=== PATIENT | male | born 1995 | race Caucasian/White ===

== ENCOUNTER 2018-05-10 21:51 | Emergency (ER) | payer OTHER, SELFPAY ==
[2018-05-10 21:52] VITALS: BP 118/76; PULSE 111; RESP 20; TEMP 36.8; O2SAT 96; BMI 30.2
--- NOTE | 2018-05-10 22:31 | ED.DCSUM_ITS ---
- ER Visit Summary Date of Service: 05/10/18 Chief Complaint: Suicidal thoughts, paranoia History of Present Illness: The patient is a 22 M with history of personality disorder and schizophrenia presents to the emergency department with increasing suicidal thoughts and personality disorder. The patient states that he was diagnosed as a schizophrenic as he was hospitalized at [facility] about a year ago. He was on Risperdal, but missed a few of his counseling appointments, and has been off of his medications. States his been having a difficult time dealing with his psychiatric disease. He has had dissociative voices, delusions, and hallucinations. He is also thoughts of harming himself. He states I will just plan traffic. Patient does have a history of drug abuse, but has been clean for over a year. Physical Examination: Vital signs reviewed General: Well-nourished, well-developed Head: Normocephalic, atraumatic Eyes: Pupils equal and reactive, extraocular muscles intact Neck, supple, no lymphadenopathy Heart: Regular rate and rhythm Respiratory: No distress, clear bilaterally Abdomen: Soft, nontender, nondistended, no peritoneal signs Back: Nontender Extremities: Nontender, no edema, no cords Skin: Normal color no rash Neuro: Alert and oriented, no focal or lateralizing deficits Test Results: [] Emergency Department Course and Treatment: The patient had psychiatric screening labs completed. These are unremarkable. His tox and alcohol were negative. He did request oral medications on arrival and he was given oral Haldol and Ativan. He is been resting comfortably. The patient has been medically cleared for transport to a psychiatric facility. We are current [facility] awaiting bed placement. Treatment Plan: [] Disposition: Transfer Impression: 1. Decompensated schizophrenia 2. Suicidal ideation This note was generated with [employer] software. It may contain incorrect words, spelling, and punctuation that were not noted in review of the chart prior to signing ED Disposition - Plan for ED Patient: Chief Complaint: Suicidal Referrals: NOT,DEFINED [NON-STAFF] -
[2018-05-10 22:54] VITALS: BP 120/74; PULSE 105; RESP 14; O2SAT 98
[2018-05-10 23:01] VITALS: BP 114/75; PULSE 92; RESP 14; O2SAT 98
[2018-05-10] MEDS: LORazepam 1 MG Tablet 2 MG PO (23:03)
[2018-05-10] MEDS: Haloperidol 5 MG Tablet PO (23:04)
[2018-05-10 23:21] LABS: Absolute Lymphocyte Count 2.84 X10^3/ul (0.83-4.51); Absolute Neutrophil Count 5.6 X10^3/uL (2.0-7.7); Basophil# 0.02 X10^3/uL; Basophil% 0.2 % (0-1); Eosinophil# 0.16 X10^3/uL; Eosinophils% 1.7 % (0-5); Hematocrit 46.7 % (40-54); Hemoglobin 16.5 g/dl (13.0-16.5); Lymphocyte # 2.84 X10^3/ul (4.0); Lymphocyte % 29.8 % (19-41); Mean Corp Hgb Conc 35.3 g/gl (32-36); Mean Corpuscular Volume 90.5 fL (80-94); Mean Platelet Vol. 9.3 fl (6.2-12.0); Monocyte# 0.85 X10^3/uL; Monocyte% 8.9 % (0-10); Neutrophil # 5.63 X10^3/uL (2.7-7.7); Neutrophil % 59.2 % (47-70); Platelet Count 323 K/mm3 (150-450); RBC Distribution Width CV 12.6 % (11.6-14.6); RBC Distribution Width SD 41.1 fl (35.1-43.9); Red Blood Count 5.16 M/mm3 (4.6-6.2); White Blood Count 9.5 K/mm3 (4.4-11.0)
[2018-05-10 23:22] LABS: POSITIVE COUNT NO; POSITIVE DIFFERENTIAL NO; POSITIVE MORPHOLOGY NO
[2018-05-10 23:26] LABS: Anion Gap 8 (5-15); BUN 12 mg/dL (7-18); BUN/Creat Ratio 12.2 RATIO (10-20); Calcium,Total 9.2 mg/dL (8.5-10.1); Chloride 107 mmol/L (98-107); Creatinine, Serum 0.98 mg/dL (0.70-1.30); EST Glomerular Filtration Rate 103 mL/min (>60); Est Glom Filt Rate - Afr Amer 125 mL/min (>60); Estimated Creatinine Clearance 128.06 ml/min; Glucose 86 mg/dL (74-106); Potassium 3.7 mmol/L (3.5-5.1); Sodium Level 142 mmol/L (136-145)
[2018-05-10 23:47] LABS: Amphetamine Urine VISTA NEGATIVE (<1000 ng/mL); Barbiturate Urine VISTA NEGATIVE (< 200 ng/mL); Benzodiazepine Urine VISTA NEGATIVE (< 200 ng/mL); Cocaine Urine VISTA NEGATIVE (< 300 ng/mL); Ecstacy Urine VISTA NEGATIVE (< 500 ng/mL); Methadone Urine VISTA NEGATIVE (< 300 ng/mL); PCP Urine VISTA NEGATIVE (< 25 ng/mL); THC Urine VISTA NEGATIVE (< 50 ng/mL); Vista UDS pH Range 5
[2018-05-10 23:54] LABS: Alcohol, Blood (Medical)-Serum < 3.0 mg/dL
[2018-05-11] VITALS (7 sets, daily range): BP systolic 111; BP diastolic 64; PULSE 64; RESP 14–16; O2SAT 100
--- NOTE | 2018-05-11 | ED.RN ---
CALLED [facility] TO SEE THIS PT, EVARISTO IS [employer]
--- NOTE | 2018-05-11 06:51 | NURSING ---
CALLED [facility] FOR TRANSFER. THEY WILL SEND A TRUCK AT SHIFT CHANGE 7 AM
== END 2018-05-11 08:30 ==
PROVIDERS: Emergency Provider Emergency Medicine
DX: F20.9 Schizophrenia, unspecified (principal); R45.851 Suicidal ideations; Z91.14 Patient's other noncompliance with medication regimen; Z91.19 Patient's noncompliance with other medical treatment and regimen; F60.9 Personality disorder, unspecified; Z87.898 Personal history of other specified conditions; Z72.0 Tobacco use
CPT/HCPCS: 80048; 80307; 80320; 85025; 99283; G0480

== ENCOUNTER → 2018-11-01 | Outpatient (CLI) | payer OTHER, SELFPAY ==
[2018-11-01 06:37] VITALS: BMI 30.2
[2018-11-01 15:10] LABS: Chlamydia Trachomatis by PCR Negative (Negative); Neisserai gonorrhoeae by PCR Negative (Negative); Probe Check PASS; Sample Adequacy Control PASS; Specimen Processing Control PASS
== END | disposition home or self-care (01) ==
LOC: LABSPEC 13:06
PROVIDERS: Referring Provider Physician Assistant Surgical; Visit Provider Physician Assistant Surgical
DX: Z20.2 Contact with and (suspected) exposure to infections with a predominantly sexual mode of transmission (principal)
CPT/HCPCS: 87491; 87591

== ENCOUNTER 2019-09-07 19:55 | Emergency (ER) | payer OTHER, SELFPAY ==
[2019-04-16 13:50] VITALS: BMI 30.2
[2019-09-07 19:56] VITALS: BP 130/108; PULSE 91; RESP 17; TEMP 36.5; O2SAT 97; BMI 35.4
[2019-09-07 20:25] VITALS: RESP 16
--- NOTE | 2019-09-07 21:03 | RAD_ITS ---
STUDY: X-RAY - ABDOMEN/PELVIS REASON FOR EXAM: Male, 23 years old. ABDOMEN PAIN X 3 DAYS, 3 DAYS SINCE LAST BM TECHNIQUE: 3 frontal views of the abdomen were obtained COMPARISON: None. FINDINGS: Normal visualized lung bases. There is an unremarkable bowel gas pattern. There is no demonstrated free abdominal air. Moderate stool burden. Normal soft tissue structures. Normal visualized osseous structures. RAD/Abdomen Single View IMPRESSION: Moderate stool burden. No free air or obstruction identified. Electronically Signed: Edy Krishnamurthy, at 23:23 EST Tel , Service support ,
[2019-09-07] MEDS: 0.9% Normal Saline 1,000 ML 1000 ML IV (21:32)
[2019-09-07] MEDS: Ondansetron 4 MG/2 ML Vial IV (21:32)
[2019-09-07] MEDS: Ketorolac 30 MG/ML Syringe IV (21:33)
[2019-09-07 21:46] LABS: Absolute Lymphocyte Count 3.11 X10^3/uL (0.83-4.51); Absolute Neutrophil Count 4.2 X10^3/uL (2.0-7.7); Basophil# 0.02 X10^3/uL; Basophil% 0.2 % (0-1); Eosinophil# 0.15 X10^3/uL; Eosinophils% 1.8 % (0-5); Hematocrit 45.3 % (40-54); Hemoglobin 15.7 g/dL (13.0-16.5); Lymphocyte # 3.11 X10^3/ul (4.0); Lymphocyte % 37.6 % (19-41); Mean Corp Hgb Conc 34.7 g/dL (32-36); Mean Corpuscular Volume 89.3 fL (80-94); Mean Platelet Vol. 8.5 fl (6.2-12.0); Monocyte# 0.77 X10^3/uL; Monocyte% 9.3 % (0-10); NRBC Flagged by Analyzer 0 % (0-5); Neutrophil % 50.7 % (47-70); Platelet Count 268 K/mm3 (150-450); RBC Distribution Width CV 11.6 % (11.6-14.6); RBC Distribution Width SD 37.3 fl (35.1-43.9); Red Blood Count 5.07 M/mm3 (4.6-6.2); White Blood Count 8.3 K/mm3 (4.4-11.0)
[2019-09-07 22:06] LABS: AST(SGOT) 30 U/L (15-37); Alanine Aminotransfer ALT/SGPT 62 U/L (16-61); Albumin, Serum 3.5 g/dL (3.2-5.0); Alkaline Phosphatase 92 U/L (45-117); Anion Gap 2 (5-15); BUN 16 mg/dL (7-18); BUN/Creat Ratio 16.2 RATIO (10-20); Bilirubin, Direct 0.08 mg/dL (0.00-0.30); Calcium,Total 8.6 mg/dL (8.5-10.1); Chloride 109 mmol/L (98-107); Creatinine, Serum 0.99 mg/dL (0.70-1.30); EST Glomerular Filtration Rate 101 mL/min (>60); Est Glom Filt Rate - Afr Amer 122 mL/min (>60); Estimated Creatinine Clearance 125.71 ml/min; Globulin 3.8 g/dL (2.2-4.2); Glucose 82 mg/dL (74-106); Lipase 90 U/L (73-393); Potassium 4.2 mmol/L (3.5-5.1); Protein, Total 7.3 g/dL (6.4-8.2); Sodium Level 140 mmol/L (136-145)
--- NOTE | 2019-09-07 22:42 | ED.DCSUM_ITS ---
History of Present Illness Chief Complaint: Constipation Informant: Patient Onset: Days - 3 days Current Severity: Mild Maximum Severity: Mild Narrative: Patient presents with a 3-day history of constipation. He states he feels as if he needs to go the bathroom but is unable. He has had nausea and vomiting for the past 2 days. He describes some abdominal cramping. He states that he had a fever 6 days ago but is unsure if it is related to his current symptoms. He states approximately a year ago he had some problems with constipation that seemed to self resolve. He has not had any prior abdominal surgeries. - Past Medical History (1) Depression Status: Chronic Past Medical History - Allergies and Home Meds Allergies/Adverse Reactions: Allergies amoxicillin Adverse Reaction (Verified 09/07/19 19:55) Fever and skin rash Primary Care Physician: Markel Jimenez MD [STAFF PHYSICIAN] - As Needed Prior records reviewed: Yes Smoking Status: Current every day smoker Review of Systems General: Denies: Chills, Fever Eyes: Denies: Visual changes - bilaterally ENT: Denies: Bilateral ear pain Cardiovascular: Denies: Chest pain Respiratory: Denies: Dyspnea, Cough Gastrointestinal: Reports: Abdominal pain, Nausea, Vomiting, Constipation Genitourinary: Denies: Dysuria Musculoskeletal: Denies: Swelling, Extremity Pain Skin: Denies: Rash Neurological: Denies: Headache Allergy: Denies: Uticaria Physical Exam Vital Signs/Narrative: Vital Signs Temp Pulse Resp BP Pulse Ox 09/07/19 20:25 16 09/07/19 19:56 97.7 F L 91 17 130/108 H 97 Inital Vital Signs reviewed: Yes General: Well nourished, Well developed Head: Normocephalic ENT: Moist mucous membranes Neck: Supple Cardiovascular: Regular rate, Regular rhythm Respiratory: No distress, CTA bilaterally Abdomen: Soft, Nontender, Hypoactive bowel sounds Extremities: Nontender Skin: Normal color, No rash Neurological: Alert, Oriented x3 Psychological: Normal affect Diagnostic/Tx/Re-eval Impressions KUB X-Ray 09/07/19 21:03 IMPRESSION: Moderate stool burden. No free air or obstruction identified. Electronically Signed: Edy Krishnamurthy, at 23:23 EST Tel , Service support , 09/07/19 21:03 Abdomen Single View [RAD] Stat Laboratory Results 09/07/19 09/07/19 21:32 21:32 WBC 8.3 RBC 5.07 Hgb 15.7 Hct 45.3 MCV 89.3 MCH 31.0 MCHC 34.7 RDW Std Deviation 37.3 RDW Coeff of Vijaya 11.6 Plt Count 268 MPV 8.5 Immature Gran % (Auto) 0.400 Neut % (Auto) 50.7 Lymph % (Auto) 37.6 Hill % (Auto) 9.3 Eos % (Auto) 1.8 Baso % (Auto) 0.2 Absolute Neuts (auto) 4.2 Absolute Lymphs (auto) 3.11 Nucleated RBC % 0 Sodium 140 Potassium 4.2 Chloride 109 H Carbon Dioxide 29.0 Anion Gap 2 L BUN 16 Creatinine 0.99 Estim Creat Clear Calc 125.71 Est GFR (MDRD) Af Amer 122 Est GFR (MDRD) Non-Af 101 BUN/Creatinine Ratio 16.2 Glucose 82 Calcium 8.6 Total Bilirubin 0.30 Direct Bilirubin 0.08 AST 30 ALT 62 H Alkaline Phosphatase 92 Total Protein 7.3 Albumin 3.5 Globulin 3.8 Lipase 90 - Medical Decision Making Patient is given Zofran, Toradol, IV fluids. On repeat evaluation nausea s ignificantly improved and he is requesting to eat. Patient does have significant stool noted, worse in the ascending and transverse colon. He will be given a bottle of mag citrate which she will drink tomorrow to help treat his constipation. ED Disposition - Plan for ED Patient: Disposition: Home or Assisted Living Diagnosis: Constipation Instructions: CONSTIPATION (Adult) Referrals: Markel Jimenez MD [STAFF PHYSICIAN] - As Needed Additional Instructions: You were given a bottle of Mag Citrate to treat your constipation. Tomorrow morning, drink half the bottle. If you have not had a bowel movement in 3-4 hours, drink the rest of the bottle.
[2019-09-07] MEDS: Magnesium Citrate 300 ML PO (22:57)
[2019-09-07 22:58] VITALS: RESP 16
== END 2019-09-07 22:58 | disposition home or self-care (01) ==
PROVIDERS: Emergency Provider Emergency Medicine
DX: K59.00 Constipation, unspecified (principal); R11.2 Nausea with vomiting, unspecified; F32.9 Major depressive disorder, single episode, unspecified; Z79.899 Other long term (current) drug therapy; F17.200 Nicotine dependence, unspecified, uncomplicated
CPT/HCPCS: 74018; 80048; 80076; 83690; 85025; 96360; 96361; 96374; 96375; 99283; J7030; J2405

== ENCOUNTER 2021-10-04 15:11 | Emergency (ER) | payer OTHER, SELFPAY ==
[2021-10-04 15:12] VITALS: BP 120/66; PULSE 105; RESP 16; TEMP 36.4; O2SAT 96; BMI 34.0
--- NOTE | 2021-10-04 15:26 | EDS_ITS ---
HPI History of Present Illness Chief Complaint: Foreign Body Informant: patient Onset/Context/Timing Onset: Today and Hours Context: Sudden Onset Timing: Continuous Current Severity: Mild Maximum Severity: Mild Narrative Narrative: 25-year-old male no sniffing past medical history. Currently on no medications. States he is eating spaghetti for lunch coughed and felt it go up the back nasopharynx area. Denies any trouble swallowing or breathing. Denies any pain. Prior similar symptoms: No Recent Illness/Hospitalization: No PFSH PFSH Medical History (Updated 10/04/21 @ 15:[address] Edy Vann MD) Depression Medical History no medical history no medical history Allergy/AdvReac Type Severity Reaction Status Date / Time amoxicillin AdvReac Fever and Verified 10/04/21 15:12 skin rash Family History Other Heart disease Surgical History no surgical history no surgical history Social History Smoking Status: Heavy Smoker (>10/day) alcohol intake: never ROS ROS ED ROS Narrative Denies recent illness. Constitutional Constitutional ED: Denies fever(s) Eyes Eyes: Denies change in vision ENT ENT ED: Denies ear pain Cardiovascular Cardiovascular: Denies chest pain Respiratory/Chest Respiratory/Chest: Denies dyspnea Gastrointestinal Gastrointestinal: Denies abdominal pain Genitourinary Genitourinary ED: Denies dysuria Musculoskeletal Musculoskeletal: Denies myalgias Integumentary Denies rash Neurologic Neurologic: Denies headache(s) Psychiatric Psychiatric: Denies depression Endocrine Endocrinology: Denies polyuria Allergic/Immunologic Allergic/Immunologic ED: Denies urticaria EXAM Physical Exam Narrative Exam Narrative: 22-year-old male no acute distress. H EENT exam normal. Posterior pharynx normal. No foreign body. No trouble breathing or swallowing. No choking or gagging. Nares are unremarkable bilaterally. Otherwise exam normal. Lungs are clear to auscultation bilaterally. Heart regular rate and rhythm. Const Vital Signs: 10/04/21 15:12 Temperature 97.5 F L Temperature Source Oral Pulse Rate 105 H Respiratory Rate 16 Blood Pressure 120/66 Blood Pressure Mean 84 Pulse Ox 96 Oxygen Delivery Method Room Air Positive well nourished, well developed and obese; Negative for cachectic, contractures or unkempt General Appearance ED: well developed and NAD; Negative for unkempt, cachectic, contractures, cyanotic, diaphoretic or pallor Nutritional Appearance: obese; Negative for cachectic HEENT Reports moist mucous membranes Negative for trauma or tenderness Eyes PERRL and EOMs intact bilaterally Neck no lymphadenopathy, supple and no JVD General: Negative for tenderness Chest Wall inspection of chest normal and palpation of chest normal Resp normal respiratory effort and clear to auscultation bilaterally Auscultation: Negative for rales, rhonchi or wheezes Cardio regular rate, regular rhythm, S1 normal heart sound, S2 normal heart sound and no murmurs GI normal to inspection, nondistended, normoactive bowel sounds, non-tender, non- distended and no masses Inspection: Negative for abdominal distention Auscultation: normoactive bowel sounds Palpation: soft; Negative for tender, guarding or rebound tenderness present Back/Spine no CVA tenderness Cervical Spine: Negative for cervical spine tenderness Thoracic Spine / Upper Back: Negative for thoracic spinal tenderness Extremity normal to inspection General Extremety ED: Negative for edema or tenderness General Extremity: Negative for edema Neuro oriented x3 Sensorium / Orientation: alert; Negative for orientation impaired, lethargic or stuporous Motor Exam: strength 5/5 throughout Psych mental status grossly normal Appearance: Negative for unkempt Attitude: No agitated Mood & Affect: Negative for depressed, anxious or tearful Skin no rashes or lesions noted and no wounds General Skin Exam: Negative for jaundice or pallor MDM MDM MDM Narrative Medical decision making narrative: 14-year-old male was eating spaghetti coughed and thinks it went in his posterior nasopharynx. Exam is normal. I reassured the patient there is nothing to do at this time. He can follow-up with ENT if his symptoms do not resolve in the next several days. Discharge Plan Triage Chief Complaint: Foreign Body ED Provider: Edy Vann Dx/Rx/DC Orders Clinical Impression: Acute foreign body of nose Primary Care Provider: Care Physician,No Primary Referrals: Jarocho Victoria MD [STAFF PHYSICIAN] - 1 Week if not improving Care Physician,No Primary [Primary Care Provider] - Activity Restrictions/Additional Instructions: This typically resolves completely on its own. The food most likely will dislodge and come down in your esophagus without any difficulty. Follow-up with ear nose and throat in a week if the symptoms do not resolve or you are having problems. That is extremely unlikely. Disposition Disposition: Home, Self Care
== END 2021-10-04 15:34 | disposition home or self-care (01) ==
PROVIDERS: Emergency Provider Emergency Medicine; Visit Provider Emergency Medicine
DX: T17.1XXA Foreign body in nostril, initial encounter (principal); F17.200 Nicotine dependence, unspecified, uncomplicated; E66.9 Obesity, unspecified; Z68.34 Body mass index [BMI] 34.0-34.9, adult
CPT/HCPCS: 99282

== ENCOUNTER 2021-11-23 16:09 | Emergency (ER) | payer OTHER, SELFPAY ==
[2021-11-23 16:10] VITALS: BP 131/83; PULSE 131; RESP 18; TEMP 37.9; O2SAT 98; BMI 32.1
[2021-11-23 16:16] VITALS: TEMP 38.4
--- NOTE | 2021-11-23 16:18 | EKG12_ITS ---
Test Reason : CHEST HEAVINESS Blood Pressure : / mmHG Vent. Rate : 116 BPM Atrial Rate : 116 BPM P-R Int : 128 ms QRS Dur : 084 ms QT Int : 296 ms P-R-T Axes : 014 042 019 degrees QTc Int : 411 ms Sinus tachycardia Otherwise normal ECG Confirmed by HONG WILLIAMSON, MARGARITO ([id number]), editor book SIRENA ELLIOTT ([id number]) on 11/25/2021 11:44:59 AM Referred By: Confirmed By:MARGARITO PITTS MD
--- NOTE | 2021-11-23 16:20 | EDS_ITS ---
HPI History of Present Illness Chief Complaint: Chest Pain Informant: patient Narrative Narrative: 26-year-old male presenting to the emergency department out of concern for heatstroke. 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 He woke up this morning feeling fine went into work. He states that he has been drinking plenty of fluids and has urinated multiple times. He notes a chest pressure some shortness of breath and feels lighthea ded. Feels dehydrated. He states that he stopped sweating for the past couple hours. He notes an occasional cough and some nausea. He denies any runny nose sore throat diarrhea or vomiting. No DVT or PE risk factors. [facility] Medical History (Updated 11/23/21 @ 19:[address] Wilbert Santos DO) Depression Allergy/AdvReac Type Severity Reaction Status Date / Time amoxicillin AdvReac Fever and Verified 11/23/21 16:12 skin rash Family History Other Heart disease Surgical History no surgical history no surgical history Social History Smoking Status: Heavy Smoker (>10/day) alcohol intake: never ROS ROS ED ROS Narrative Fatigue Constitutional Constitutional ED: Reports chills; Denies weight loss Eyes Eyes: Denies change in vision or diplopia ENT ENT ED: Denies ear pain, rhinorrhea or sore throat Cardiovascular Cardiovascular: Reports chest pain; Denies orthopnea, palpitations or racing heartbeat Respiratory/Chest Respiratory/Chest: Reports cough, dyspnea and dyspnea on exertion; Denies orthopnea Gastrointestinal Gastrointestinal: Reports nausea; Denies abdominal pain, diarrhea or vomiting Genitourinary Genitourinary ED: Denies dysuria, hematuria or urinary frequency Musculoskeletal Musculoskeletal: Denies arthralgias or myalgias Integumentary Denies abscess or rash Neurologic Neurologic: Denies headache(s) or weakness Psychiatric Psychiatric: Denies anxiety, depression, suicidal ideation or suicidal thoughts Endocrine Endocrinology: Denies polydipsia, polyphagia or polyuria Allergic/Immunologic Allergic/Immunologic ED: Denies mouth swelling, tongue swelling or urticaria EXAM Physical Exam Const Vital Signs: 11/23/21 16:10 11/23/21 16:16 11/23/21 16:17 Temperature 100.3 F H 101.1 F H Temperature Source Temporal Oral Pulse Rate 131 H Respiratory Rate 18 Respiratory Effort Normal Non-Labored Blood Pressure 131/83 H Blood Pressure Mean 99 Pulse Ox 98 Oxygen Delivery Method Room Air 11/23/21 17:09 11/23/21 17:35 11/23/21 18:00 Temperature 100.6 F H 102 F H Temperature Source Oral Oral Pulse Rate 109 H 106 H Respiratory Rate 18 22 H Respiratory Effort Blood Pressure 119/74 109/48 L Blood Pressure Mean 89 68 Pulse Ox 97 95 Oxygen Delivery Method Room Air Room Air 11/23/21 19:00 Temperature Temperature Source Pulse Rate 105 H Respiratory Rate 20 H Respiratory Effort Blood Pressure 113/45 L Blood Pressure Mean 67 Pulse Ox 98 Oxygen Delivery Method Room Air Positive well nourished and well developed General Appearance ED: well developed HEENT Reports normocephalic, head/scalp atraumatic, TM's clear and moist mucous membranes HEENT Narrative: No photophobia Negative for trauma Tympanic Membrane ED: Yes TM's clear Eyes PERRL and EOMs intact bilaterally Neck no lymphadenopathy, supple and no JVD Neck Narrative: No meningeal signs Resp normal respiratory effort and clear to auscultation bilaterally Cardio regular rate and no murmurs Rate: tachycardic GI normal to inspection, nondistended, normoactive bowel sounds and non-tender Palpation: soft Back/Spine no CVA tenderness and normal ROM Thoracic Spine / Upper Back: Negative for thoracic spinal tenderness or paraspinal muscle tenderness Lumbar Spine / Lower Back: Negative for lumbar spinal tenderness Extremity normal to inspection General Extremety ED: Negative for edema General Extremity: Negative for edema Neuro oriented x3 and CN's II-XII intact bilaterally Sensorium / Orientation: alert Motor Exam: strength 5/5 throughout Psych mental status grossly normal Mood & Affect: Negative for depressed or tearful Skin no rashes or lesions noted and no wounds MDM MDM MDM Narrative Medical decision making narrative: She is white count is elevated at 15. Coags are normal D-dimer is normal. Creatinine 1.35 with a BUN of 22. Troponin is normal lactic acid is normal. My interpretation of the chest x-ray is no acute process. His urine specimen is normal. 1 set of blood cultures was obtained a nd the patient declined a second set due to not wanting to be poked with a needle. He has a normal abdominal exam. He is ANO x3. He is not complaining of headache or neck pain. It is possible that he suffered from heat exhaustion. He has had 3 L of IV fluids and his temperature is declining. This could also be infectious etiology however I am not identifying anything on physical exam or the history to really tell me what the infections process would be. I advised the patient to be aggressive with fever control and hydration tonight. I advised him that if he develops any infectious symptoms he should return to emergency. His mother is with him at exit interview and notes understanding of the plan Lab Data Attestation: I reviewed the patient's lab results. Labs: Laboratory Results - last 24 hr 11/23/21 11/23/21 11/23/21 16:20 16:32 16:32 WBC 15.0 H RBC 4.79 Hgb 15.1 Hct 43.4 MCV 90.6 MCH 31.5 MCHC 34.8 RDW Std Deviation 40.3 RDW Coeff of Vijaya 12.2 Plt Count 294 MPV 9.1 Immature Gran % (Auto) 0.400 Neut % (Auto) 81.9 H Lymph % (Auto) 9.9 L Harney % (Auto) 7.2 Eos % (Auto) 0.5 Baso % (Auto) 0.1 Absolute Neuts (auto) 12.3 H Absolute Lymphs (auto) 1.48 Nucleated RBC % 0 PT 14.0 INR 1.1 APTT 31.2 D-Dimer Quant (PE/DVT) < 0.27 L Sodium 137 Potassium 3.6 Chloride 104 Carbon Dioxide 25.0 Anion Gap 8 BUN 22 H Creatinine 1.35 H Estim Creat Clear Calc 89.86 Est GFR (MDRD) Af Amer 83 Est GFR (MDRD) Non-Af 69 BUN/Creatinine Ratio 16.3 Glucose 91 Lactic Acid Calcium 8.9 Total Bilirubin 0.90 AST 54 H ALT 40 Alkaline Phosphatase 95 Troponin I High Sens < 3 L Total Protein 7.6 Albumin 3.9 Globulin 3.7 Albumin/Globulin Ratio 1.1 Urine Color Urine Clarity Urine pH Ur Specific [place] Urine Protein Urine Glucose (UA) Urine Ketones Urine Occult Blood Urine Nitrite Urine Bilirubin Urine Urobilinogen Ur Leukocyte Esterase Urine RBC Urine WBC Ur Squamous Epith Cells Urine Bacteria Urine Mucus 11/23/21 11/23/21 16:32 16:34 WBC RBC Hgb Hct MCV MCH MCHC RDW Std Deviation RDW Coeff of Vijaya Plt Count MPV Immature Gran % (Auto) Neut % (Auto) Lymph % (Auto) Har[place] % (Auto) Eos % (Auto) Baso % (Auto) Absolute Neuts (auto) Absolute Lymphs (auto) Nucleated RBC % PT INR APTT D-Dimer Quant (PE/DVT) Sodium Potassium Chloride Carbon Dioxide Anion Gap BUN Creatinine Estim Creat Clear Calc Est GFR (MDRD) Af Amer Est GFR (MDRD) Non-Af BUN/Creatinine Ratio Glucose Lactic Acid 1.4 Calcium Total Bilirubin AST ALT Alkaline Phosphatase Troponin I High Sens Total Protein Albumin Globulin Albumin/Globulin Ratio Urine Color Yellow Urine Clarity Clear Urine pH 5.0 Ur Specific [place] 1.020 Urine Protein 15 H Urine Glucose (UA) Normal Urine Ketones Negative Urine Occult Blood Negative Urine Nitrite Negative Urine Bilirubin Negative Urine Urobilinogen 1 H Ur Leukocyte Esterase 25 H Urine RBC 0 SEEN Urine WBC 0-5 SEEN Ur Squamous Epith Cells 0 SEEN Urine Bacteria 0 SEEN Urine Mucus 0 SEEN Radiography Diagnostic Testing: Clinical Impression(s) from Imaging Studies Chest X-Ray 11/23/21 16:37 IMPRESSION: Nonacute x-ray examination of the chest. Electronically Signed: Raymond Angel MD (Brooks) at 16:53 EDT Reading Location ID and State: [facility] / [place] , Service support , EKG Initial EKG: Attestation: I personally reviewed and interpreted this EKG as follows: Comments: Sinus tachycardia with a ventricular rate of 116 bpm Discharge Plan Triage Chief Complaint: Chest Pain ED Provider: Wilbert Santos Dx/Rx/DC Orders Clinical Impression: Heat exhaustion, Acute febrile illness Instructions: ED FUO Adult Primary Care Provider: Care Physician,No Primary Referrals: Care Physician,No Primary [Primary Care Provider] - Activity Restrictions/Additional Instructions: If you develop any new symptoms or worsening please return to emergency. Tylenol and/or Motrin for fever control Drink plenty of fluids. Disposition Disposition: Home, Self Care
--- NOTE | 2021-11-23 16:21 | NURSING ---
NO OLD EKGS
[2021-11-23] MEDS: Acetaminophen 500 MG Tablet 1000 MG PO (16:30)
[2021-11-23] MEDS: 0.9% Normal Saline 1,000 ML 1000 ML IV ×2 (16:32→17:34)
--- NOTE | 2021-11-23 16:37 | RAD_ITS ---
STUDY: X-RAY CHEST REASON FOR EXAM: Male, 26 years old. chest pain TECHNIQUE: Single AP portable view of the chest. COMPARISON: None. FINDINGS: EKG leads project over the chest. The lungs are clear and expanded. There is no demonstrated pleural abnormality. Normal size heart. Normal mediastinum and cynthia. Normal visualized pulmonary arteries. Normal visualized aortic arch and descending thoracic aorta. Normal visualized thoracic spine. Normal visualized ribs, clavicles, and shoulders. There is no demonstrated abnormality of the visualized soft tissue structures of the upper abdomen. RAD/Chest 1 View (Portable) IMPRESSION: Nonacute x-ray examination of the chest. Electronically Signed: Raymond Angel MD (Brooks) at 16:53 EDT ,
[2021-11-23 16:54] LABS: Bacteria 0 SEEN /hpf (None Seen); Mucous, Urine 0 SEEN /hpf (<or=2+); Red Blood Cells-Urine 0 SEEN /hpf (0-5); Squamous Epithelial Cells - UA 0 SEEN /hpf (0-5)
[2021-11-23 16:57] LABS: Color, Urine Yellow (Yellow); Glucose, Dipstick Normal (Normal); Ketone-Dipstick Negative (Negative); Leukocyte Esterase-Dipstick 25 /ul (Negative); Nitrite-Dipstick Negative (Negative); Occult Blood-Urine Negative /ul (Negative); Protein-Dipstick 15 mg/dl (Negative); Urine Bilirubin Dipstick Negative (Negative); Urine Clarity Clear (Clear); Urine Urobilinogen 1 mg/dl (Normal)
[2021-11-23 17:00] LABS: Absolute Lymphocyte Count 1.48 X10^3/uL (0.83-4.51); Absolute Neutrophil Count 12.3 X10^3/uL (2.0-7.7); Basophil# 0.02 X10^3/uL; Basophil% 0.1 % (0-1); Eosinophil# 0.07 X10^3/uL; Eosinophils% 0.5 % (0-5); Hematocrit 43.4 % (40-54); Hemoglobin 15.1 g/dL (13.0-16.5); Lymphocyte # 1.48 X10^3/ul (0.83-4.51); Lymphocyte % 9.9 % (19-41); Mean Corp Hgb Conc 34.8 g/dL (32-36); Mean Corpuscular Hgb 31.5 pg (27.0-32.0); Mean Corpuscular Volume 90.6 fL (80-94); Mean Platelet Vol. 9.1 fl (6.2-12.0); Monocyte# 1.08 X10^3/uL; Monocyte% 7.2 % (0-10); NRBC Flagged by Analyzer 0 % (0-5); Neutrophil # 12.25 X10^3/uL (2.7-7.7); Neutrophil % 81.9 % (47-70); Platelet Count 294 K/mm3 (150-450); RBC Distribution Width CV 12.2 % (11.6-14.6); RBC Distribution Width SD 40.3 fl (35.1-43.9); Red Blood Count 4.79 M/mm3 (4.6-6.2)
[2021-11-23 17:06] LABS: Partial Thromboplast Time 31.2 Seconds (24.1-36.2)
[2021-11-23 17:07] LABS: International Normalized Ratio 1.1
[2021-11-23 17:09] VITALS: BP 119/74; PULSE 109; RESP 18; O2SAT 97
[2021-11-23 17:15] LABS: White Blood Cells 0-5 SEEN /hpf (0-5)
[2021-11-23 17:18] LABS: ALB/GLOB Ratio 1.1 RATIO (0.9-2.4); AST(SGOT) 54 U/L (15-37); Alanine Aminotransfer ALT/SGPT 40 U/L (16-61); Albumin, Serum 3.9 g/dL (3.2-5.0); Alkaline Phosphatase 95 U/L (45-117); Anion Gap 8 (5-15); BUN 22 mg/dL (7-18); BUN/Creat Ratio 16.3 RATIO (10-20); Calcium,Total 8.9 mg/dL (8.5-10.1); Chloride 104 mmol/L (98-107); Creatinine, Serum 1.35 mg/dL (0.70-1.30); EST Glomerular Filtration Rate 69 mL/min (>60); Est Glom Filt Rate - Afr Amer 83 mL/min (>60); Estimated Creatinine Clearance 89.86 ml/min; Globulin 3.7 g/dL (2.2-4.2); Glucose 91 mg/dL (74-106); Potassium 3.6 mmol/L (3.5-5.1); Protein, Total 7.6 g/dL (6.4-8.2); Sodium Level 137 mmol/L (136-145); Troponin-I HS < 3 pg/mL (3.0-78.0)
[2021-11-23 17:19] LABS: D-Dimer Quantitative (DVT/PE) < 0.27 FEU/ug/m (0.27-0.49)
[2021-11-23 17:23] LABS: Lactic Acid 1.4 mmol/L (0.4-1.9)
[2021-11-23 17:35] VITALS: TEMP 38.1
[2021-11-23 18:00] VITALS: BP 109/48; PULSE 106; RESP 22; TEMP 38.8; O2SAT 95
[2021-11-23] MEDS: Ibuprofen 400 MG Tablet 800 MG PO (18:04)
[2021-11-23] MEDS: 0.9% Normal Saline 1,000 ML 999 ML IV (18:07)
[2021-11-23 19:00] VITALS: BP 113/45; PULSE 105; RESP 20; O2SAT 98
[2021-11-23] MEDS: Ketorolac 30 MG/ML Syringe IV (19:35)
[2021-11-23] MEDS: Ondansetron 4 MG/2 ML Vial IV (19:35)
--- NOTE | 2021-11-23 19:56 | ED.RN ---
pt refusing 2nd set of blood cultures. pt shaking head no. updated. continue with d/c
== END 2021-11-23 19:56 | disposition home or self-care (01) ==
PROVIDERS: Emergency Provider Emergency Medicine; Visit Provider Emergency Medicine
DX: T67.5XXA Heat exhaustion, unspecified, initial encounter (principal); X30.XXXA Exposure to excessive natural heat, initial encounter; F17.200 Nicotine dependence, unspecified, uncomplicated; R50.9 Fever, unspecified; R07.89 Other chest pain
CPT/HCPCS: 71045; 80053; 81001; 83605; 84484; 85025; 85379; 85610; 85730; 87040; 87428; 87635; 93005; 96361; 96374; 96375; 99285; J7030; A4216; J2405; U0003; U0005

== ENCOUNTER 2021-11-24 10:22 | Emergency (ER) | payer OTHER, SELFPAY ==
[2021-11-24] VITALS (8 sets, daily range): BP systolic 97–115; BP diastolic 40–87; PULSE 88–106; RESP 18–24; TEMP 37.6–39.3; O2SAT 93–96; BMI 34.1
--- NOTE | 2021-11-24 10:39 | EX.ED.DYSGE1 ---
HPI History of Present Illness Chief Complaint: General Illness Narrative Narrative: Patient presents with multiple complaints and concerned about blood infection. He states he was seen in the emergency department yesterday for possible heatstroke. He had an elevated temperature. He had laboratory testing, and complains of a generalized weakness. He states he was discharged from the emergency department around 7 PM last evening, almost 16 hours ago. He has not taken any antipyretics. He feels subjective fever, generalized weakness, and not right. States he has chills. He denies any dysuria or hematuria. No cough or other symptoms. [facility] Medical History (Updated 11/24/21 @ 13:23 by Clemente Conde MD) Depression Home Medications NK 11/24/21 [History Last Taken Unknown] Allergy/AdvReac Type Severity Reaction Status Date / Time amoxicillin AdvReac Fever and Verified 11/24/21 10:26 skin rash Family History Other Heart disease Social History Smoking Status: Heavy Smoker (>10/day) alcohol intake: never ROS ROS ED ROS Narrative Constitutional: Positive subjective fever, positive chills. HEENT: No sore throat. No neck pain. No loss of vision. No rhinorrhea. Cardiovascular: No chest pain. Occasional palpitations. No pedal edema. Respiratory: No cough, no shortness of breath. Abdominal: No abdominal pain. No nausea. No vomiting. Genitourinary: No dysuria. No hematuria. Musculoskeletal: No myalgias. No arthralgias. Neurologic: No headaches. Positive dizziness. Positive lightheadedness. Positive generalized weakness Skin: No rash. No change in color. Psychiatric: No depression. No anxiety. EXAM Physical Exam Narrative Exam Narrative: Positive fever 102.7 ?F. Vital signs noted. HEENT: Normocephalic. Atraumatic. PERRL, EOMI. Neck soft and supple. No point tenderness or step off. Cardiovascular: Tachycardia 104 bpm.. No murmurs, rubs, or gallops appreciated. Respiratory: No tachypnea. Lungs clear to auscultation bilaterally. Gastrointestinal: Abdomen soft, nontender, with normoactive bowel sounds. No rebound or guarding. Neurological: Awake. Alert. Nonfocal, nonlateralizing. Skin: No rash. Normal color. No pallor. Musculoskeletal: No pedal edema. Full range of motion extremities. Const Vital Signs: 11/24/21 10:23 11/24/21 10:28 11/24/21 10:29 Temperature 102.7 F H Temperature Source Oral Pulse Rate 104 H Respiratory Rate 22 H Respiratory Pattern Tachypnea Blood Pressure 111/41 L Blood Pressure Mean 64 Pulse Ox 93 Oxygen Delivery Method Room Air Room Air 11/24/21 10:45 11/24/21 11:27 11/24/21 12:07 Temperature 99.7 F H Temperature Source Temporal Pulse Rate 106 H 104 H 99 Respiratory Rate 18 24 H Respiratory Pattern Blood Pressure 110/40 L 97/60 103/43 L Blood Pressure Mean 63 72 63 Pulse Ox 96 95 Oxygen Delivery Method Room Air Room Air 11/24/21 12:36 11/24/21 12:55 11/24/21 13:55 Temperature 100 F H Temperature Source Temporal Pulse Rate 89 88 Respiratory Rate 18 Respiratory Pattern Blood Pressure 99/42 L 115/61 109/87 H Blood Pressure Mean 61 79 Pulse Ox 95 Oxygen Delivery Method Room Air MDM MDM MDM Narrative Medical decision making narrative: I reviewed his prior records. He had an elevated white count of 15,000. Chest x-ray showed no acute process. He only had 1 set of blood cultures. I will repeat a sepsis work-up today. He will be administered Tylenol and I will obtain respiratory swabs such as COVID and influenza. His white count has improved to 11.8, hemoglobin normal at 13.7. Platelet count normal 209. Electrolyte panel is grossly unremarkable. Lactic acid normal at 0.9. He was bolused 2 L of fluid. CK is elevated at 703 urinalysis shows no evidence of infection. I do not feel antibiotics are indicated. His repeat respiratory swabs are also negative. He is feeling improved. I do feel that he can be discharged safely home. He feels well and would be agreeable to discharge. He will take ibuprofen and/or Tylenol at home. Return instructions to the emergency department were reviewed. Disposition is discharged home in stable condition. Lab Data Attestation: I reviewed the patient's lab results. Labs: Laboratory Results - last 24 hr 11/24/21 11/24/21 11/24/21 10:35 10:35 10:35 WBC 11.8 H RBC 4.35 L Hgb 13.7 Hct 40.0 MCV 92.0 MCH 31.5 MCHC 34.3 RDW Std Deviation 41.4 RDW Coeff of Vijaya 12.3 Plt Count 209 MPV 8.7 Immature Gran % (Auto) 0.300 Neut % (Auto) 80.3 H Lymph % (Auto) 11.7 L [place] % (Auto) 7.4 Eos % (Auto) 0.1 Baso % (Auto) 0.2 Absolute Neuts (auto) 9.5 H Absolute Lymphs (auto) 1.38 Nucleated RBC % 0 Sodium 136 Potassium 3.9 Chloride 106 Carbon Dioxide 25.0 Anion Gap 5 BUN 15 Creatinine 1.06 Estim Creat Clear Calc 114.45 Est GFR (MDRD) Af Amer 110 Est GFR (MDRD) Non-Af 91 BUN/Creatinine Ratio 14.2 Glucose 102 Lactic Acid 0.9 Calcium 8.2 L Total Bilirubin 0.80 AST 38 H ALT 32 Alkaline Phosphatase 74 Total Creatine Kinase 703 H Total Protein 6.4 Albumin 3.2 Globulin 3.2 Albumin/Globulin Ratio 1.0 Urine Color Urine Clarity Urine pH Ur Specific [place] Urine Protein Urine Glucose (UA) Urine Ketones Urine Occult Blood Urine Nitrite Urine Bilirubin Urine Urobilinogen Ur Leukocyte Esterase Urine RBC Urine WBC Ur Squamous Epith Cells Urine Bacteria Urine Mucus 11/24/21 11:02 WBC RBC Hgb Hct MCV MCH MCHC RDW Std Deviation RDW Coeff of Vijaya Plt Count MPV Immature Gran % (Auto) Neut % (Auto) Lymph % (Auto) [place] % (Auto) Eos % (Auto) Baso % (Auto) Absolute Neuts (auto) Absolute Lymphs (auto) Nucleated RBC % Sodium Potassium Chloride Carbon Dioxide Anion Gap BUN Creatinine Estim Creat Clear Calc Est GFR (MDRD) Af Amer Est GFR (MDRD) Non-Af BUN/Creatinine Ratio Glucose Lactic Acid Calcium Total Bilirubin AST ALT Alkaline Phosphatase Total Creatine Kinase Total Protein Albumin Globulin Albumin/Globulin Ratio Urine Color Yellow Urine Clarity Sl. Cloudy Urine pH 7.0 Ur Specific [place] 1.010 Urine Protein 15 H Urine Glucose (UA) Normal Urine Ketones Negative Urine Occult Blood Negative Urine Nitrite Negative Urine Bilirubin Negative Urine Urobilinogen 1 H Ur Leukocyte Esterase Negative Urine RBC 0-5 SEEN Urine WBC 0 SEEN Ur Squamous Epith Cells 0-5 SEEN Urine Bacteria RARE Urine Mucus 0 SEEN Discharge Plan Triage Chief Complaint: General Illness Other Complaint: Weakness ED Provider: Clemente Conde Dx/Rx/DC Orders Clinical Impression: Acute febrile illness, Acute viral syndrome, Malaise and fatigue, Elevated CK Instructions: ED FUO Adult, ED Viral Syndrome (Adult), ED Weakness (Uncertain Cause) Prescriptions: No Action NK RF: 0 Primary Care Provider: Care Physician,No Primary Referrals: Gera Clifford MD [STAFF PHYSICIAN] - 3-5 Days if not improving Care Physician,No Primary [Primary Care Provider] - Disposition Disposition: Home, Self Care Discharge Date/Time: 11/24/21 13:57
--- NOTE | 2021-11-24 10:41 | EKG12_ITS ---
Test Reason : Blood Pressure : / mmHG Vent. Rate : 100 BPM Atrial Rate : 100 BPM P-R Int : 132 ms QRS Dur : 092 ms QT Int : 330 ms P-R-T Axes : 019 052 002 degrees QTc Int : 425 ms Normal sinus rhythm Nonspecific T wave abnormality Abnormal ECG Confirmed by DEVENDRA WILLIAMSON, DARRELL ([id number]), editor sound SIRENA ELLIOTT ([id number]) on 11/28/2021 1:24:16 PM Referred By: RODGER Confirmed By:DARRELL RAMSAY MD
[2021-11-24 10:50] LABS: Absolute Lymphocyte Count 1.38 X10^3/uL (0.83-4.51); Absolute Neutrophil Count 9.5 X10^3/uL (2.0-7.7); Basophil# 0.02 X10^3/uL; Basophil% 0.2 % (0-1); Eosinophil# 0.01 X10^3/uL; Eosinophils% 0.1 % (0-5); Hemoglobin 13.7 g/dL (13.0-16.5); Lymphocyte # 1.38 X10^3/ul (0.83-4.51); Lymphocyte % 11.7 % (19-41); Mean Corp Hgb Conc 34.3 g/dL (32-36); Mean Corpuscular Hgb 31.5 pg (27.0-32.0); Mean Platelet Vol. 8.7 fl (6.2-12.0); Monocyte# 0.87 X10^3/uL; Monocyte% 7.4 % (0-10); NRBC Flagged by Analyzer 0 % (0-5); Neutrophil # 9.45 X10^3/uL (2.7-7.7); Neutrophil % 80.3 % (47-70); Platelet Count 209 K/mm3 (150-450); RBC Distribution Width CV 12.3 % (11.6-14.6); RBC Distribution Width SD 41.4 fl (35.1-43.9); Red Blood Count 4.35 M/mm3 (4.6-6.2); White Blood Count 11.8 K/mm3 (4.4-11.0)
[2021-11-24] MEDS: 0.9% Normal Saline 1,000 ML 999 ML IV ×2 (10:52→12:35)
[2021-11-24] MEDS: Acetaminophen 500 MG Tablet 1000 MG PO (10:52)
[2021-11-24 11:09] LABS: AST(SGOT) 38 U/L (15-37); Alanine Aminotransfer ALT/SGPT 32 U/L (16-61); Albumin, Serum 3.2 g/dL (3.2-5.0); Alkaline Phosphatase 74 U/L (45-117); Anion Gap 5 (5-15); BUN 15 mg/dL (7-18); BUN/Creat Ratio 14.2 RATIO (10-20); CPK Total, Creatine Kinase 703 U/L (39-308); Calcium,Total 8.2 mg/dL (8.5-10.1); Chloride 106 mmol/L (98-107); Creatinine, Serum 1.06 mg/dL (0.70-1.30); EST Glomerular Filtration Rate 91 mL/min (>60); Est Glom Filt Rate - Afr Amer 110 mL/min (>60); Estimated Creatinine Clearance 114.45 ml/min; Globulin 3.2 g/dL (2.2-4.2); Glucose 102 mg/dL (74-106); Lactic Acid 0.9 mmol/L (0.4-1.9); Potassium 3.9 mmol/L (3.5-5.1); Protein, Total 6.4 g/dL (6.4-8.2); Sodium Level 136 mmol/L (136-145)
[2021-11-24 11:13] LABS: Mucous, Urine 0 SEEN /hpf (<or=2+); White Blood Cells 0 SEEN /hpf (0-5)
[2021-11-24 11:18] LABS: Color, Urine Yellow (Yellow); Glucose, Dipstick Normal (Normal); Ketone-Dipstick Negative (Negative); Leukocyte Esterase-Dipstick Negative /ul (Negative); Nitrite-Dipstick Negative (Negative); Occult Blood-Urine Negative /ul (Negative); Protein-Dipstick 15 mg/dl (Negative); Urine Bilirubin Dipstick Negative (Negative); Urine Clarity Sl. Cloudy (Clear); Urine Urobilinogen 1 mg/dl (Normal)
[2021-11-24 11:26] LABS: Bacteria RARE /hpf (None Seen); Red Blood Cells-Urine 0-5 SEEN /hpf (0-5); Squamous Epithelial Cells - UA 0-5 SEEN /hpf (0-5)
--- NOTE | 2021-11-24 13:27 | CM.ED ---
Social Work Note Referral Source: Case Find, No PCP SW met with pt and introduced self and role at [facility]. Pt confirms he has no PCP. SW provided pt with list of PCP. Pt denied additional needs or concerns at this time. Estephanie Arroyo MSW, WEB ASSISTANT
== END 2021-11-24 13:57 | disposition home or self-care (01) ==
PROVIDERS: Emergency Provider Emergency Medicine; Visit Provider Emergency Medicine
DX: B34.9 Viral infection, unspecified (principal); R53.1 Weakness; F17.200 Nicotine dependence, unspecified, uncomplicated; R53.81 Other malaise; R74.8 Abnormal levels of other serum enzymes; R50.9 Fever, unspecified
CPT/HCPCS: 80053; 81001; 82550; 83605; 85025; 87040; 87086; 87088; 87428; 93005; 96360; 96361; 99285; J7030; A4216